=== PATIENT | female | born 1955 | race Caucasian/White ===

== ENCOUNTER 2017-10-28 07:35 | Day surgery (SDC) | payer OTHER, MEDICAID, SELFPAY ==
--- NOTE | 2017-10-28 07:41 | PM.PREOP ---
Pre-operative Note Interval Note Pre-op Check: Yes History & Physical Reviewed by Physician Changes: No
[2017-10-28 07:55] VITALS: BP 139/79; PULSE 87; RESP 16; TEMP 36.4; O2SAT 95
[2017-10-28] MEDS: PROPARACAINE 0.5% OPHTH SOL 2 DROPS EYE-OP (08:05)
[2017-10-28] MEDS: CATARACT EYE COMPOUND (10 DROPS/SYRINGE) 3 DROPS EYE-OP (08:11)
[2017-10-28 08:39] VITALS: BMI 41.1
[2017-10-28 09:15] VITALS: BP 131/69; PULSE 77; RESP 18; TEMP 36.8; O2SAT 98
[2017-10-28] MEDS: BALANCED SALT IRRIG SOLN NO.2 15 ML IRRIG.SOLN IRR (09:24)
[2017-10-28] MEDS: CHONDROIDTIN/SOD HYALURONATE 1.05 ML SYRINGE INTRAOCULA (09:25)
[2017-10-28] MEDS: CARBACHOL 1.5 ML VIAL INJ (09:25)
[2017-10-28] MEDS: HYALURONATE SODIUM 10 MG/ML SYRINGE INJ (09:26)
[2017-10-28] MEDS: LIDOCAINE 1% W/EPI INJ 20 ML INJ (09:27)
[2017-10-28] MEDS: MOXIFLOXACIN OPHTH DROPS 3 ML BOTTLE 2 DROPS INJ (09:28)
[2017-10-28] MEDS: NEOMYCIN/POLY/DEX OPHTH OINT 1 APPLIC EYE-LEFT (09:28)
[2017-10-28] MEDS: OFLOXACIN 0.3% OPHTH 5 ML 2 DROPS EYE-LEFT (09:29)
[2017-10-28] MEDS: PHENYLEPHRINE/LIDOCAINE 3ML VIAL (OR) EYE-OP (09:30)
[2017-10-28] MEDS: TRIAMCINOLONE 50 MG/5 ML VIAL INJ (09:31)
[2017-10-28] MEDS: LIDOCAINE 2% 4 ML, BUPIVACAINE 0.5% (PF) 4 ML, HYALURONIDASE 150 UNIT INJ (09:32)
[2017-10-28] MEDS: BALANCED SALT IRRIG SOLN NO.2 500 ML, EPINEPHrine 1 MG IRR (09:32)
[2017-10-28 09:49] VITALS: BP 140/88; PULSE 74; RESP 16; TEMP 36.6; O2SAT 98
--- NOTE | 2017-10-28 12:31 | PM.PREOP ---
Pre-operative Note Interval Note Pre-op Check: Yes History & Physical Reviewed by Physician, Yes Exam Performed and Yes History & Physical exam performed today by Physician Changes: No
--- NOTE | 2017-10-28 12:37 | P.OP_ITS ---
Procedure & Clinicians Procedure: Date of service: October 28, 2017 Preoperative diagnoses: 1. Nuclear sclerotic and cortical Cataract. 2. Insulin-dependent diabetes. 3. Morbid obesity 4. Sleep apnea. 5. Fibromyalgia 6. Hypertension. Postoperative diagnoses: 1. Cataract removed with phacoemulsification with posterior chamber intraocular lens implant. Procedure: Phacoemulsification with posterior chamber intraocular lens implant Surgeon: Selin Vila MD Complications: None Specimen: None Implant: ZCBOO+20.5 Blood loss: None Anesthesia: Retrobulbar with monitored standby Anesthesiologist: Toño Phan M.D. Description of procedure: Patient is a 62 year old female insulin-dependent diabetic with decreased vision due to cataract which is affecting activities of daily living. She wants surgery to improve vision. Preoperative fasting glucose is in the 140s. She has taken to the operating room and given IV sedation. A retrobulbar block insert consisting of 6 cc of 2% xylocaine without epinephrine mixed half and half with 0.5% Marcaine with 1 cc of hyaluronidase added is placed between the medial and lateral 1/3 of the inferior orbital rim. Lid akinesia is obtain with 1% xylocaine with epinephrine infiltrated along the lid margin. The eye is manually massaged for 30 sec, prepped using Betadine solution, and draped in the usual sterile fashion. Temporal approach was made, a 1 mm side-port incision was made at the 12 o' clock meridian. Phenylephrine 1.5% mixed with 1% xylocaine 0.2 cc was placed into the anterior chamber. Viscoat followed by Healon was then placed. A 2.6 mm clear incision with a 2.6 mm blade was placed at the 3 oclock meridian. A 360 degree capsulorrhexis style capsulotomy was then performed with a cystitome needle on a Healon. Hydrodelineation and hydrodissection were performed. The phacoemulsification unit is introduced, and sculpting notice used to groove the central lens. It is then removed in chopping mode. Epi nucleus is removed with epinuclear mode and irrigation aspiration was used to remove the peripheral cortex. The posterior capsule is polished. The intraocular lens is selected, inspected, power confirmed, and placed in the posterior chamber. The pupil was constricted. The wound was stromally hydrated and tested for leaks, there was none and was left sutureless. Vigamox 0.1 cc was placed into the anterior chamber. Kenalog 0.2 cc was placed in the superior subconjunctival space. A drop of antibiotic and was placed and the eye was patched and shielded. The patient was stable and returned to the recovery room in excellent condition. Dictated by: Selin Vila MD Copy to: [facility]
--- NOTE | 2017-10-28 12:37 | PM.DS.1 ---
History of Present Illness Chief complaint: cataract left [id number] Discharge Providers Discharge provider: Selin Vila MD Exam Vital Signs (past 8 hours): - 10/28/17 07:55 10/28/17 09:15 10/28/17 09:49 Temperature 97.6 F 98.3 F 97.9 F Pulse Rate 87 77 74 Respiratory Rate 16 18 16 Blood Pressure 139/79 H 131/69 H 140/88 H Pulse Oximetry 95 98 98 Oxygen Delivery Method Room Air Discharge Plan Discharge Plan Patient Disposition: Home Discharge comment: See discharge handout. Discharge Med Rec/Prescriptions Prescriptions: No Action amlodipine 10 MG tablet 10 mg PO QDAY Qty: 0 RF: 0 ASPIRIN (Aspirin) 81 mg PO QDAY Qty: 0 RF: 0 simvastatin 20 MG tablet 20 mg PO HS Qty: 0 RF: 0 LEVOTHYROXINE SODIUM (LEVOTHROID) 0.125 mg PO QDAY Qty: 0 RF: 0 pregabalin [Lyrica] 150 MG capsule 150 mg PO QDAY Qty: 0 RF: 0 montelukast [Singulair] 10 MG tablet 10 mg PO DAILY Qty: 0 RF: 0 CALCIUM CARBONATE ([id number]) 1,500 mg PO DAILY Qty: 0 RF: 0 insulin glargine [Lantus U-100 Insulin] 100 unit/mL Solution 15 units Sub-Q BID RF: 0 metformin 1,000 mg Tablet 1,000 mg PO BID RF: 0 Discharge Orders: Discharge (Order); Ordered 10/28/17 Ordered By: Selin Vila Visit Report/Discharge Packet Stand Alone Forms: Cataract Discharge Julito, Surgery Discharge Discharge Data Attending Provider: Selin Vila Discharges patient from system. Discharge Date/Time: 10/28/17 10:35
== END 2017-10-28 10:35 | disposition home or self-care (01) ==
PROVIDERS: Visit Provider Ophthalmology
DX: H25.12 Age-related nuclear cataract, left eye (principal); E11.9 Type 2 diabetes mellitus without complications; I10 Essential (primary) hypertension; G47.33 Obstructive sleep apnea (adult) (pediatric); Z79.4 Long term (current) use of insulin; M79.7 Fibromyalgia; E66.01 Morbid (severe) obesity due to excess calories
CPT/HCPCS: J0171; J2250; J2704; J3010; J3301; J3470

== ENCOUNTER 2017-11-18 07:34 | Day surgery (SDC) | payer OTHER, MEDICAID, SELFPAY ==
--- NOTE | 2017-11-18 07:34 | PM.PREOP ---
Pre-operative Note Interval Note Pre-op Check: Yes History & Physical Reviewed by Physician Changes: No H&P completed within 30 days and has changed as indicated here:: Fasting glucose monitored in per-op and was stable.
--- NOTE | 2017-11-18 07:37 | P.OP_ITS ---
Operative Date/Time/Diagnoses Date of procedure: 11/18/17 Time of procedure: 09:00 Procedure & Clinicians Procedure: Date of service: November 18, 2017 Preoperative diagnoses: 1. Right nuclear scerlotis and cortical Cataract 2. Diabetes,Insulin dependent. 3.Morbid obersity. 4. Sleep Apnea Postoperative diagnoses: 1. Cataract removed with phacoemulsification with placement of posterior chamber intraocular lens implant. Procedure: Phacoemulsification with posterior chamber intraocular lens implant Surgeon: Selin Vila MD Complications:none Specimen: None Implant:ZCBOO+21.5 Implant:ZCBOO+21.5 Blood loss: None Anesthesia: Retrobulbar with monitored standby Anesthesiologist: Carlos Galvin M.D. Description of procedure: Patient is a female year old with decreased vision due to cataract which is affecting activities of daily living. She wants surgery to improve vision. She was taken to the operating room and given IV sedation. A retrobulbar block insert consisting of 6 cc of 2% xylocaine without epinephrine mixed half and half with 0.5% Marcaine with 1 cc of hyaluronidase added is placed between the medial and lateral 1/3 of the inferior orbital rim. Lid akinesia is obtain with 1% xylocaine with epinephrine infiltrated along the lid margin. The eye is manually massaged for 30 sec, prepped using Betadine solution, and draped in the usual sterile fashion. Temporal approach was made, a 1 mm side-port incision was made at the 7:30 position. Phenylephrine 1.5% mixed with 1% xylocaine 0.2 cc was placed into the anterior chamber. Viscoat followed by Mary was then placed. A 2.6 mm clear incision with a 2.6 mm blade was placed at the 170 degree meridian. A 360 degree capsulorrhexis style capsulotomy was then performed with a cystitome needle on a Healon. Hydrodelineation and hydrodissection were performed. The phacoemulsification unit is introduced, and sculpting notice used to groove the central lens. It is then removed in chopping mode. Epi nucleus is removed with epinuclear mode and irrigation aspiration was used to remove the peripheral cortex. The posterior capsule is polished. The intraocular lens is selected, inspected, power confirmed, and placed in the posterior chamber. The pupil was constricted. The wound was stromally hydrated and tested for leaks, there was none and it was left sutureless. Vigamox 0.1 cc was placed into the anterior chamber. Kenalog 0.2 cc was placed in the superior subconjunctival space. A drop of antibiotic and was placed and the eye was patched and shielded. The patient was stable and returned to the recovery room in excellent condition. Dictated by: Selin Vila MD Copy to: [facility] Same procedure as scheduled: Yes
[2017-11-18] MEDS: PROPARACAINE 0.5% OPHTH SOL 2 DROPS EYE-OP (08:05)
[2017-11-18] MEDS: CATARACT EYE COMPOUND (10 DROPS/SYRINGE) 3 DROPS EYE-OP (08:05)
[2017-11-18 08:08] VITALS: BP 143/86; PULSE 77; RESP 16; TEMP 36; O2SAT 95; BMI 41.5
--- NOTE | 2017-11-18 09:05 | PM.OP.1 ---
Operative Date/Time/Diagnoses Date of procedure: 11/18/17 Time of procedure: 09:00
[2017-11-18] MEDS: CHONDROIDTIN/SOD HYALURONATE 1.05 ML SYRINGE INTRAOCULA (09:38)
[2017-11-18] MEDS: CARBACHOL 1.5 ML VIAL INJ (09:38)
[2017-11-18] MEDS: BALANCED SALT IRRIG SOLN NO.2 15 ML IRRIG.SOLN IRR (09:38)
[2017-11-18] MEDS: MOXIFLOXACIN OPHTH DROPS 3 ML BOTTLE 2 DROPS INJ (09:39)
[2017-11-18] MEDS: LIDOCAINE 1% W/EPI INJ 20 ML INJ (09:39)
[2017-11-18] MEDS: HYALURONATE SODIUM 10 MG/ML SYRINGE INJ (09:39)
[2017-11-18] MEDS: NEOMYCIN/POLY/DEX OPHTH OINT 1 APPLIC EYE-RIGHT (09:39)
[2017-11-18] MEDS: PHENYLEPHRINE/LIDOCAINE VIAL (OR) 0.2 ML EYE-OP (09:40)
[2017-11-18] MEDS: OFLOXACIN 0.3% OPHTH 5 ML 2 DROPS EYE-RIGHT (09:40)
[2017-11-18] MEDS: LIDOCAINE 2% 4 ML, BUPIVACAINE 0.5% (PF) 4 ML, HYALURONIDASE 150 UNIT INJ (09:41)
[2017-11-18] MEDS: TRIAMCINOLONE 50 MG/5 ML VIAL INJ (09:41)
[2017-11-18] MEDS: BALANCED SALT IRRIG SOLN NO.2 500 ML, EPINEPHrine 1 MG IRR (09:41)
[2017-11-18] MEDS: TETRACAINE 0.5% OPHTH DROPS 15 ML 2 DROPS EYE-BOTH (09:59)
[2017-11-18 10:09] VITALS: BP 147/86; PULSE 77; RESP 15; TEMP 36.1; O2SAT 98
[2017-11-18] MEDS: ACETAMINOPHEN 325 MG TABLET PO (10:11)
== END 2017-11-18 10:20 | disposition home or self-care (01) ==
PROVIDERS: PCP Family Medicine; Visit Provider Ophthalmology
DX: H25.11 Age-related nuclear cataract, right eye (principal); E11.9 Type 2 diabetes mellitus without complications; I10 Essential (primary) hypertension; Z79.4 Long term (current) use of insulin; G47.33 Obstructive sleep apnea (adult) (pediatric)
CPT/HCPCS: J0171; J2704; J3301; J3470

== ENCOUNTER 2018-07-10 06:59 | Emergency (ER) | payer OTHER, MEDICAID, SELFPAY ==
[2018-07-10 07:18] VITALS: BP 159/98; PULSE 83; RESP 13; TEMP 36.5; O2SAT 97
--- NOTE | 2018-07-10 07:38 | ED.LOWEXIN ---
HPI - Extremity Injury (Lower) General Chief Complaint: Extremity Injury, Lower Stated Complaint: pain after steroid shot in left leg Time Seen by Provider: 07/10/18 07:12 Source: patient Mode of arrival: ambulatory Limitations: no limitations History of Present Illness HPI Narrative: Patient is a 63-year-old presents with left knee pain. She says it has been ongoing for about a month. She got a cortisone shot 1 week ago she said it lasted for about 3 days. She now is having increasing pain. She denies any fever is not red. She does not take anything for pain. She occasionally takes Tylenol but it does not seem to be helping. Today her pain is worse. Related Data Home Medications Medication Instructions Recorded Confirmed ASPIRIN (Aspirin) 81 mg PO QDAY #0 06/25/11 10/28/17 LEVOTHYROXINE SODIUM (LEVOTHROID) 0.125 mg PO QDAY #0 06/25/11 10/28/17 amlodipine 10 mg PO QDAY #0 06/25/11 10/28/17 pregabalin [Lyrica] 150 mg PO QDAY #0 06/25/11 10/28/17 simvastatin 20 mg PO HS #0 06/25/11 10/28/17 CALCIUM CARBONATE ([id number]) 1,500 mg PO DAILY #0 06/27/11 10/28/17 montelukast [Singulair] 10 mg PO DAILY #0 06/27/11 10/28/17 insulin glargine [Lantus U-100 15 units SUB-Q BID 10/28/17 10/28/17 Insulin] metformin 1,000 mg PO BID 10/28/17 10/28/17 Previous Rx's Medication Instructions Recorded tramadol 50 mg PO Q6H PRN #10 tab 07/10/18 Allergies Allergy/AdvReac Type Severity Reaction Status Date / Time phenazopyridine Allergy Severe BREATHING Verified 10/28/17 08:03 PROBLEMS adhesive Allergy Intermediate RASH FROM Verified 10/28/17 08:30 TAPE codeine Allergy Intermediate NAUSEA Verified 10/28/17 08:03 Review of Systems Review of Systems ROS Unobtainable: All systems reviewed & are unremarkable except as noted in HPI and below Constitutional Denies chills, Denies fever(s), Denies lethargy and Denies weakness Cardiovascular Denies chest pain, Denies irregular heart rhythm, Denies lightheadedness, Denies palpitations, Denies dyspnea, Denies dyspnea on exertion and Denies orthopnea Respiratory Denies cough, Denies dyspnea, Denies dyspnea on exertion and Denies wheezing Gastrointestinal Gastrointestinal: Denies abdominal pain, Denies change in bowel habits, Denies diarrhea, Denies nausea and Denies vomiting Musculoskeletal Reports as per HPI Integumentary/Breasts Denies pruritus, Denies erythema, Denies rash and Denies wounds Neurologic Denies confusion and Denies weakness Psychiatric Denies anxiety, Denies confusion, Denies depression, Denies homicidal ideation and Denies suicidal ideation Endocrine Denies palpitations Allergic/Immunologic Denies wheezing [facility] Medical History Diabetes (Acute) Hyperlipidemia (Acute) Hypertension (Acute) Hypothyroid (Acute) Surgical History History of total knee arthroplasty (Acute) Social History household members: family Social History household members: family Exam Initial Vital Signs Initial Vital Signs: Vital Signs Temperature 97.7 F 07/10/18 07:18 Pulse Rate 83 07/10/18 07:18 Respiratory Rate 13 07/10/18 07:18 Blood Pressure 159/98 H 07/10/18 07:18 Pulse Oximetry 97 07/10/18 07:18 GENERAL: Overweight elderly male no acute distress CARDIOVASCULAR: peripheral pulses in tact, cap refill <2 sec RESPIRATORY: No respiratory distress, speaks in full sentences without difficulty EXTREMITIES: Normal range of motion, no clubbing or edema. Neurovascularly intact Left knee mild swelling no erythema knee is stable distal pedal pulse intact Right knee has scar mild swelling NEUROLOGICAL: Cranial nerves II through XII grossly intact. Normal gait and speech. SKIN: Warm, dry, no petechiae, no rashes or lesions. Course Orders Ordered: ED Orders 07/10/18 07:43 XR knee LT 3V Stat Discontinued Medications Ketorolac Tromethamine (Toradol) 30 mg IM NOW ONE Stop: 07/10/18 07:44 Last Admin: 07/10/18 07:54 Dose: 30 mg Vital Signs - 8 hr 07/10/18 07:18 Temperature 97.7 F Pulse Rate 83 Respiratory Rate 13 Blood Pressure 159/98 H Pulse Oximetry 97 MDM - Extremity Injury (Lower) Imaging Data left knee XR: My impression: No fractures Radiologist's impression: PROCEDURE: XR KNEE LT 3V INDICATIONS: left knee pain TECHNIQUE: 3 views of the knee were acquired. COMPARISON: [facility], , KNEE 1-2 VIEWS RIGHT, 09/08/2013, 14:10. FINDINGS: Bones: No fractures or dislocations. No suspicious bony lesions. Moderate tricompartmental degenerative changes noted. Soft tissues: Small joint effusion. IMPRESSION: Moderate tricompartment degenerative changes of the left knee with small left knee joint effusion. No acute fracture or dislocation of the left knee identified. Dictated by: Iron Pizarro M.D. on 07/10/2018 at 8:33 Discharge Plan Departure Patient Disposition: Home Clinical Impression: Osteoarthritis Qualifiers: Osteoarthritis location: knee Osteoarthritis type: unspecified Laterality: left Qualified Code(s): M17.12 - Unilateral primary osteoarthritis, left knee Discharge Date/Time: 07/10/18 08:46 Interventions: ED Discharge Assessment Last Done: 07/10/18 08:45 Instructions: DI for Arthritis Activity Restrictions/Additional Instructions: *You have been diagnosed with osteoarthritis *What to do: Increase activity as tolerated *Continue to take medications as directed Tylenol 650 mg every 4-6 hours if needed for pain Tramadol 50 mg every 6 hours only if needed for severe pain *Follow up with your primary care provider in 2-3 days *Return to ER if you should have fever, redness, weakness or any new, worsening or concerning symptoms CONTROLLED SUBSTANCE DISCHARGE (Narcotoic/benzodiazepine/Flexeril/Phenergan) 1. You have been prescribed narcotic medications, it does have acetaminophen/Tylenol/paracetamol in it so do not take extra Tylenol or Tylenol containing products -TRAMADOL DOES NOT CONTAIN TYLENOL 2. Please understand that we cannot provide further refills of narcotics, benzodiazepines or controlled substances through the ED and her pain management will need to be through your provider. 3. While on these medications you cannot drive or operate heavy machinery. 4. You cannot sign legal documents or perform any duties such as this. 5. As long as you're taking opiate pain medications he should also be taking a stool softener such as Colace, Dulcolax, MiraLAX or prune juice, to help avoid constipation. Prescriptions: New tramadol 50 mg tablet 50 mg PO Q6H PRN (Reason: pain) Qty: 10 RF: 0 No Action amlodipine 10 MG tablet 10 mg PO QDAY Qty: 0 RF: 0 ASPIRIN (Aspirin) 81 mg PO QDAY Qty: 0 RF: 0 simvastatin 20 MG tablet 20 mg PO HS Qty: 0 RF: 0 LEVOTHYROXINE SODIUM (LEVOTHROID) 0.125 mg PO QDAY Qty: 0 RF: 0 pregabalin [Lyrica] 150 MG capsule 150 mg PO QDAY Qty: 0 RF: 0 montelukast [Singulair] 10 MG tablet 10 mg PO DAILY Qty: 0 RF: 0 CALCIUM CARBONATE ([id number]) 1,500 mg PO DAILY Qty: 0 RF: 0 insulin glargine [Lantus U-100 Insulin] 100 unit/mL Solution 15 units Sub-Q BID RF: 0 metformin 1,000 mg Tablet 1,000 mg PO BID RF: 0 Referrals: Maury Diamond DO [Non-Staff] -
--- NOTE | 2018-07-10 07:43 | DI.RAD.S_ITS ---
PROCEDURE: XR KNEE LT 3V INDICATIONS: left knee pain TECHNIQUE: 3 views of the knee were acquired. COMPARISON: [facility], , KNEE 1-2 VIEWS RIGHT, 09/08/2013, 14:10. FINDINGS: Bones: No fractures or dislocations. No suspicious bony lesions. Moderate tricompartmental degenerative changes noted. Soft tissues: Small joint effusion. IMPRESSION: Moderate tricompartment degenerative changes of the left knee with small left knee joint effusion. No acute fracture or dislocation of the left knee identified. Dictated by: Iron Pizarro M.D. on 07/10/2018 at 8:33 Approved by: Iron Pizarro M.D. on 07/10/2018 at 8:35
[2018-07-10] MEDS: KETOROLAC 60 MG/2 ML VIAL 30 MG IM (07:54)
== END 2018-07-10 08:46 | disposition home or self-care (01) ==
PROVIDERS: Emergency Provider Emergency Medicine
DX: M17.12 Unilateral primary osteoarthritis, left knee (principal)
CPT/HCPCS: 73562; 96372; 99282; 99283; J1885

== ENCOUNTER → 2019-04-12 11:09 | Outpatient (CLI) | payer MEDICAID, SELFPAY ==
--- NOTE | 2019-04-12 11:16 | DI.CT.S_ITS ---
PROCEDURE: CT ABDOMEN PELVIS WO CON INDICATIONS: HISTORY OF KIDNEY STONES TECHNIQUE: Noncontrast 5 mm thick sections acquired from the diaphragms to the symphysis. 5 mm thick coronal and sagittal reformats were then performed. For radiation dose reduction, the following was used: automated exposure control, adjustment of mA and/or kV according to patient size. COMPARISON: [facility], CT, CT ABDOMEN PELVIS WITH CONTRAST, 02/16/2019, 7:47. FINDINGS: Image quality: Excellent. Lung bases: Lung bases are clear. Heart size is normal. Urinary system: Both kidneys are normal in size. No left-sided kidney stones but there is a 6 mm nonobstructive calculus within a posterior calyx of the right mid kidney.. No hydronephrosis or perinephric fat stranding. Both ureters appear non-dilated throughout their expected courses. Bladder wall thickness is normal; no calcified bladder stones. Other solid organs: Liver is normal in size. Gallbladder is partially contracted. Pancreas is normal in contours. Spleen is normal in size. No adrenal nodules. Peritoneum and bowel: Unenhanced bowel loops demonstrate normal wall thickness and caliber. No free fluid or air. Nodes and vessels: No retroperitoneal or mesenteric adenopathy by size criteria. Aorta and inferior vena cava are normal in caliber. Abdominal wall: No ventral hernias. Pelvis: No free pelvic fluid. No inguinal hernias or adenopathy. Several scattered pelvic phleboliths are present but no distal ureteral stone is found. Bones: No suspicious bony lesions. No vertebral body compression fractures. IMPRESSION: 6 mm nonobstructive right mid kidney collecting system calculus, rounded, and this stone appears to have been previously present within an anterior calyx of the right mid kidney on contrast-enhanced CT scanning 02/16/19. This calculus is mobile with risk for migrating into the renal pelvis and ureter on the right. It has an internal radiodensity is 385 Hounsfield units. Dictated by: Emanuel Fuentes M.D. on 04/12/2019 at 15:47 Approved by: Emanuel Fuentes M.D. on 04/12/2019 at 15:51
== END ==
PROVIDERS: PCP Family Medicine; Referring Provider Urology; Visit Provider Urology
DX: N20.0 Calculus of kidney (principal); Z87.442 Personal history of urinary calculi
CPT/HCPCS: 74176

== ENCOUNTER → 2019-05-10 10:08 | Outpatient (CLI) | payer MEDICARE, SELFPAY ==
--- NOTE | 2019-05-10 | DI.RAD.S_ITS ---
PROCEDURE: XR ABDOMEN 1V INDICATIONS: NEPHROLITHIASIS TECHNIQUE: One view of the abdomen acquired. COMPARISON: [facility], CT, CT ABDOMEN PELVIS WO CON, 04/12/2019, 11:08. FINDINGS: Surgical changes and devices: Few pelvic surgical clips and soft tissue anchors. Bowel: Bowel gas pattern is normal. Soft tissues: Left-sided nephrolithiasis projecting at the L3 level, which is probably grossly unchanged since the recent comparison CT dated 04/12/19. Radiographically this measures 7 mm Bones: No suspicious bony lesions. Lower lumbar spondylosis bilateral mild hip joint degeneration IMPRESSION: Grossly unchanged left-sided nephrolithiasis Dictated by: Dominik Davila M.D. on 05/10/2019 at 13:24 Approved by: Dominik Davila M.D. on 05/10/2019 at 13:26
== END ==
PROVIDERS: PCP Family Medicine; Referring Provider Urology; Visit Provider Urology
DX: N20.0 Calculus of kidney (principal)
CPT/HCPCS: 74018

== ENCOUNTER → 2020-10-18 09:01 | Outpatient (CLI) | payer MEDICARE, MEDICAID, SELFPAY ==
--- NOTE | 2020-10-18 | DI.RAD.S_ITS ---
PROCEDURE: FL JOINT INJECTION LARGE LT INDICATIONS: CORTISONE LEFT HIP INJECTION OSTEOARTHRITIS COMPARISON: None. TECHNIQUE: The indications, alternatives, benefits, risks, and complications of the procedure were explained to the patient. Written informed consent was obtained and placed in the chart. The patient was placed in an appropriate position on the fluoroscopy table, and a site was chosen for percutaneous access under fluoroscopic guidance. The site was prepped and draped in a sterile fashion. Local anesthetic was administered using a 1% lidocaine solution. A hypodermic or spinal needle was then used to access the symptomatic joint. Intra-articular location of the needle tip was confirmed by injecting a small amount of contrast, followed by steroid administration. The needle was then withdrawn, and a bandage applied to the puncture site. FINDINGS: Joint injected: Left hip Medications injected: 1 mL of 40 mg/mL Kenalog and 3 cc of 0.5% Ropivacaine mixture. Patient's pain before injection: 2 out of 10. Patient's pain after injection: 1 out of 10. Complications: None. IMPRESSION: Successful fluoroscopically guided administration of steroid and anaesthetic solution into the left hip joint. Dictated by: Dominik Davila M.D. on 10/19/2020 at 14:01 Approved by: Dominik Davila M.D. on 10/19/2020 at 14:02
== END ==
PROVIDERS: PCP Family Medicine; Referring Provider Orthopaedic Surgery; Visit Provider Orthopaedic Surgery
DX: M16.0 Bilateral primary osteoarthritis of hip (principal)
CPT/HCPCS: 20610; 76000; 77002